=== PATIENT | male | born 2000 | race Caucasian/White ===

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

== ENCOUNTER → 2018-12-26 | Outpatient (CLI) | payer OTHER | LOC: M.ULTRA 12:59 | DX: I86.1 Scrotal varices (principal); N43.3 Hydrocele, unspecified ==

== ENCOUNTER 2021-02-02 21:10 | Emergency (ER) | payer OTHER ==
[~2021-02-02] VITALS: Ht 165.1 cm; Wt 45.4 kg
[2021-02-02 23:06] VITALS: BP 105/65
== END 2021-02-02 23:06 | disposition home or self-care (01) ==
LOC: M.ERS 21:10
DX: S80.211A Abrasion, right knee, initial encounter (principal); Z88.1 Allergy status to other antibiotic agents; Z88.8 Allergy status to other drugs, medicaments and biological substances; W22.8XXA Striking against or struck by other objects, initial encounter; Y93.89 Activity, other specified; Y92.89 Other specified places as the place of occurrence of the external cause; Y99.8 Other external cause status